=== PATIENT | male | born 1965 | race American Indian/Alaskan Native ===

== ENCOUNTER 2018-03-21 12:09 | Outpatient (CLI) | payer OTHER ==
--- NOTE | 2018-03-21 15:02 | Cat Scan Report ---
FINAL REPORT EXAM: CT UPPER EXTREM LT W CON HISTORY: ABSCESS OF LEFT HAND TECHNIQUE: CT examination of the left hand after IV contrast PRIORS: None. FINDINGS: Bones are intact without acute fracture or dislocation. There is no bone rarefaction, periosteal elevation, focal medullary sclerosis, or cortical erosion to suggest radiographic evidence of osteomyelitis. No evidence of stenosis in the visible radial and ulnar arteries. No evidence of DVT in the visible veins. There regional diffuse soft tissue swelling in the hand dorsum overlying the metacarpals. There is both superficial and deep fat stranding in this region suggestive of edema, inflammation, and/or infection. No evidence of rim enhancing fluid collection or air bubbles to suggest abscess. IMPRESSION: No acute skeletal pathology Diffuse soft tissue swelling in the hand dorsum, at the level of the metacarpals, may reflect edema, inflammation, cellulitis, and/or phlegmon. No CT evidence of well-defined abscess
== END 2018-03-21 12:10 | disposition home or self-care (01) ==
LOC: CT 12:09
PROVIDERS: ATTEND Internal Medicine Infectious Disease
DX: L02.512 Cutaneous abscess of left hand (principal); M19.90 Unspecified osteoarthritis, unspecified site; I10 Essential (primary) hypertension; F17.219 Nicotine dependence, cigarettes, with unspecified nicotine-induced disorders; Z88.6 Allergy status to analgesic agent
CPT/HCPCS: 73201; Q9967

== ENCOUNTER 2021-05-04 09:05 | Outpatient (CLI) | payer OTHER ==
--- NOTE | 2021-05-04 10:05 | XRay Report ---
Bilateral knees 5 views INDICATION: Pain FINDINGS: There is tricompartmental degenerative change with significant joint space narrowing in the medial compartment and patellofemoral joints. No acute fractures seen. No joint effusion is identifi ed. 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 Bilateral ankles 4 views INDICATION: Ankle pain FINDINGS: Within the right ankle there is diffuse swelling medial lateral ankle joint space. Degenera tive change and subtalar joint and tibiotalar joints with joint effusion. There is also degenerative change in the left ankle at the tibiotalar joint and subtalar joints. Joint effusion left is noted as well. No acute fracture is definitely seen. Calcaneal spurring is seen bilaterally. IMPRESSION: Soft tissue swelling with degenerative change bilateral knees. Signer Name: Reno Wang MD Signed: 05/04/2021 10:01 AM Workstation Name: [id number]
== END 2021-05-04 09:06 | disposition home or self-care (01) ==
LOC: XRAY 09:05
PROVIDERS: ATTEND Internal Medicine
DX: M17.0 Bilateral primary osteoarthritis of knee (principal); M79.89 Other specified soft tissue disorders; M19.072 Primary osteoarthritis, left ankle and foot; M19.071 Primary osteoarthritis, right ankle and foot